=== PATIENT | female | born 1990 | race African-American/Black ===

== ENCOUNTER → 2017-01-07 | Outpatient (CLI) | payer BC ==
[2015-03-02 14:00] VITALS: BP 131/94
[~2017-01-07] MED LIST: DOCU-109 PO; Ibuprofen PO; OXYC-323 PO
--- NOTE | 2017-01-07 14:58 | RAD ---
Obstetrical ultrasound, 01/07/2017: History: Routine evaluation There is a single intrauterine fetus in a breech orientation. The biparietal diameter measures 4.1 cm compatible with a gestational age of 18-19 weeks. This corresponds well to the other measurements and yields a sonographic EDC of 06/05/2017. Normal activity and heart motion were seen. The heart rate was 150 bpm. No specific abnormality is detected. The placenta lies anteriorly with no evidence of a placenta previa. A normal amount of amniotic fluid is present. The cervical length is 5 cm. IMPRESSION: Single viable intrauterine fetus of 18-19 weeks gestational age as described above.
== END | disposition home or self-care (01) ==
LOC: US 12:49
PROVIDERS: ATTEND Obstetrics & Gynecology
DX: O26.842 Uterine size-date discrepancy, second trimester (principal); Z3A.18 18 weeks gestation of pregnancy
CPT/HCPCS: 76805

== ENCOUNTER 2017-04-22 11:03 | Observation (INO) | payer BC ==
[2015-03-02 14:00] VITALS: BP 131/94
[2017-04-22] MEDS ORDERED: IV RINGERS,LACTATED 1000ML 1,000 ML IV PRN (11:15)
--- NOTE | 2017-04-22 12:47 | RAD ---
Obstetrical ultrasound-Limited, 04/22/2017: History: Decreased movement There is a single intrauterine fetus in a breech orientation. movement and cardiac activity is present with a heart rate of 141 bpm. A full survey with measurements was not performed at this time. A normal amount of amniotic fluid is present with the CLAYTON calculated at 14. The placenta lies anteriorly and is considered to be grade 1. The cervix measures 5 to 6 cm in length.
[2017-04-22 13:13] LABS: BACTERIA,URINE FEW /HPF (0-FEW); BILIRUBIN,URINE NEGATIVE (NEG); GLUCOSE,URINE NEGATIVE (NEG); NITRITE,URINE NEGATIVE (NEG); PROTEIN,URINE 30 mg/dL (NEG-TRACE); RBC,URINE OCC /HPF (0-2); SQUAMOUS EPITHELIAL CELL,UR MANY /LPF; UROBILINOGEN,URINE 0.2 mg/dL (0.2 mg/dL)
[2017-06-07] MEDS ORDERED: DOCU-109 PO (12:31)
[2017-06-07] MEDS ORDERED: OXYC-323 PO (12:31)
[2017-06-07] MEDS ORDERED: IBUP-1060 PO (12:31)
== END 2017-04-22 14:55 | disposition home or self-care (01) ==
LOC: 3 SO LND 11:03
PROVIDERS: ADMIT Obstetrics & Gynecology; ATTEND Obstetrics & Gynecology
DX: O36.8130 Decreased fetal movements, third trimester, not applicable or unspecified (principal); O21.2 Late vomiting of pregnancy; O26.893 Other specified pregnancy related conditions, third trimester; R11.0 Nausea; Z3A.33 33 weeks gestation of pregnancy
CPT/HCPCS: 76815; 81001; G0378; G0379

== ENCOUNTER 2017-05-28 11:38 | Observation (INO) | payer BC | END 2017-05-28 13:40 | disposition home or self-care (01) | LOC: 3 SO LND 11:38 | DX: O26.893 Other specified pregnancy related conditions, third trimester (principal); R06.02 Shortness of breath; R60.9 Edema, unspecified; R20.2 Paresthesia of skin; Z3A.37 37 weeks gestation of pregnancy | CPT/HCPCS: G0378; G0379 ==

== ENCOUNTER 2017-06-04 07:14 | Inpatient (IN) | payer BC ==
[2017-06-04] MEDS ORDERED: FAMOTIDINE 20 MG/2 ML VIAL (07:21)
[2017-06-04] MEDS ORDERED: ONDANSETRON PF 4 MG/2 ML VIAL. (07:21)
[2017-06-04] MEDS ORDERED: MORPHINE PF 5 MG/10 ML VIAL. (07:34)
[2017-06-04] MEDS ORDERED: fentaNYL PF VIAL 100 MCG/2 ML VIAL (07:35)
[2017-06-04 07:51] LABS: HEMATOCRIT 41.3 % (36.0-47.0); MEAN CORPUSCULAR HEMOGLOBIN 32 pg (25-35); MEAN CORPUSCULAR HGB CONC 34 g/dL (31-37); MEAN CORPUSCULAR VOLUME 94 fL (79-100); PLATELET COUNT 194 x10^3/uL (140-400); RED CELL DISTRIBUTION WIDTH 13.8 % (11.5-14.5); WHITE BLOOD COUNT 9.1 x10^3/uL (4.0-11.0)
[2017-06-04] MEDS: IV RINGERS,LACTATED 1000ML 1,000 ML IV (08:01)
[2017-06-04] MEDS: CITRIC ACID/SODIUM CITRATE 30 ML SOLUTION. PO (08:02)
[2017-06-04 08:05] LABS: BILIRUBIN,URINE NEGATIVE (NEG); CLARITY,URINE CLEAR; COLOR,URINE YELLOW; GLUCOSE,URINE NEGATIVE (NEG); NITRITE,URINE NEGATIVE (NEG); PH,URINE 6.5; PROTEIN,URINE 30 mg/dL (NEG-TRACE); UROBILINOGEN,URINE 0.2 mg/dL (0.2 mg/dL)
[2017-06-04] MEDS ORDERED: PHENYLEPHRINE in 0.9% NACL PF 1 MG/10 ML SYRINGE. IV (08:27)
[2017-06-04] MEDS ORDERED: OXYTOCIN 10 UNIT/ML VIAL. ×3 (08:32→08:45)
[2017-06-04 08:34] LABS: BACTERIA,URINE FEW /HPF (0-FEW); SQUAMOUS EPITHELIAL CELL,UR MOD /LPF; WBC,URINE OCC /HPF (0-4)
[2017-06-04] MEDS ORDERED: diphenhydrAMINE ORAL ELIXIR 12.5 MG/5 ML ML PO (09:15)
[2017-06-04] MEDS ORDERED: MAG HYDROX/ALUMINUM HYD/SIMETH 30 ML ORAL.SUSP PO (09:15)
[2017-06-04] MEDS ORDERED: SIMETHICONE 80 MG TAB.CHEW PO (09:15)
[2017-06-04] MEDS ORDERED: 0.9 % SODIUM CHLORIDE 10 ML DISP.SYRIN. IV (09:15)
[2017-06-04] MEDS ORDERED: ONDANSETRON PF 4 MG/2 ML VIAL. IV (09:15)
[2017-06-04] MEDS ORDERED: KETOROLAC 30 MG/ML INJ. IV (09:15)
[2017-06-04] MEDS ORDERED: ZOLPIDEM 5 MG TABLET. PO (09:15)
[2017-06-04] MEDS ORDERED: OXYTOCIN 30 UNIT/500 ML PREMIX 500 ML IV (09:15)
[2017-06-04] MEDS: KETOROLAC 30 MG/ML INJ. IV (10:52)
[2017-06-04] MEDS ORDERED: DIPHTH,PERTUSS(ACELL),TET TOX 0.5 ML DISP.SYRIN. VAX IM (14:30)
[2017-06-04] MEDS ORDERED: FERROUS SULFATE 325 MG TABLET. PO (17:00)
[2017-06-04] MEDS ORDERED: ONDANSETRON ODT 4 MG TAB.RAPDIS. PO (17:45)
[2017-06-04] MEDS: oxyCODONE/APAP 5/325 1 TAB TABLET PO (18:56)
[2017-06-05] MEDS: IBUPROFEN 800 MG TABLET. PO ×2 (03:01→17:26)
[2017-06-05 05:58] LABS: ADD MAN DIFF? NO
[2017-06-05 06:00] LABS: BASO # 0.1 x10^3/uL (0.0-0.2); BASO % 1 % (0-3); EOS # 0.1 x10^3/uL (0.0-0.7); EOS % 1 % (0-3); HEMATOCRIT 37.2 % (36.0-47.0); HEMOGLOBIN 12.4 g/dL (12.0-15.5); LYMPH # 2.4 x10^3/uL (1.0-4.8); LYMPH % 25 % (24-48); MEAN CORPUSCULAR HEMOGLOBIN 32 pg (25-35); MEAN CORPUSCULAR HGB CONC 33 g/dL (31-37); MEAN CORPUSCULAR VOLUME 95 fL (79-100); MONO # 0.7 x10^3/uL (0.0-1.1); MONO % 7 % (0-9); NEUT # 6.4 x10^3uL (1.8-7.7); NEUT % 66 % (31-73); PLATELET COUNT 175 x10^3/uL (140-400); RED BLOOD COUNT 3.92 x10^6/uL (3.50-5.40); RED CELL DISTRIBUTION WIDTH 13.9 % (11.5-14.5); WHITE BLOOD COUNT 9.7 x10^3/uL (4.0-11.0)
[2017-06-05 06:16] LABS: RPR Non Reactive (Non Reactive)
[2017-06-05] MEDS: DOCUSATE SODIUM 100 MG CAPSULE. PO (08:52)
[2017-06-05] MEDS: oxyCODONE/APAP 5/325 1 TAB TABLET PO (08:53)
[2017-06-06] MEDS: oxyCODONE/APAP 5/325 1 TAB TABLET PO (03:14)
[2017-06-06] MEDS: DOCUSATE SODIUM 100 MG CAPSULE. PO ×2 (03:14→17:21)
[2017-06-06] MEDS: IBUPROFEN 800 MG TABLET. PO ×2 (08:41→17:21)
[2017-06-07] MEDS: oxyCODONE/APAP 5/325 1 TAB TABLET PO (05:42)
[2017-06-07] MEDS: DOCUSATE SODIUM 100 MG CAPSULE. PO (05:42)
[2017-06-07] MEDS: IBUPROFEN 800 MG TABLET. PO (08:18)
[2017-06-07] MEDS ORDERED: DIPHTH,PERTUSS(ACELL),TET TOX 0.5 ML DISP.SYRIN. VAX IM (13:00)
== END 2017-06-07 15:31 | disposition home or self-care (01) | DRG 766 ==
LOC: OPSVCIP 07:14 → 3 SO LND 07:33 → 3 NORTH 11:08
PROC: 10D00Z1 Extraction of Products of Conception, Low, Open Approach (ICD-10-PCS; principal; 2017-06-04)
DX: O34.211 Maternal care for low transverse scar from previous cesarean delivery (principal); Z37.0 Single live birth; Z3A.39 39 weeks gestation of pregnancy
CPT/HCPCS: 36415; 81001; 85025; 85027; 86593; 86850; 86900; 86901; J0690; J1885; J2270; J2370; J2405; J2590; J3010; J7120; S0028

== ENCOUNTER → 2018-10-28 | Outpatient (CLI) | payer BC ==
[2017-06-07 11:10] VITALS: BP 118/82
[~2018-10-28] MED LIST changes: +IBUP-1060 PO; -OXYC-323 PO; +OXYC1TAB15 PO
--- NOTE | 2018-10-28 16:18 | RAD ---
EXAM: Pelvic sonogram. HISTORY: Abnormal uterine bleeding. Cervical dysplasia. TECHNIQUE: Sonographic imaging of the pelvis was performed. COMPARISON: None. FINDINGS: The uterus is retroflexed and measures 10.4 x 5.7 x 4.9 cm. The endometrial stripe measures 12 abdomen thickness. The ovaries are normal in size and demonstrate normal blood flow. There is no pelvic free fluid. IMPRESSION: 1. Retroflexed uterus. 2. Prominent endometrial stripe. This is within normal limits for a premenopausal female. Electronically signed by: Laurence Roa MD (10/28/2018 4:15 PM) [id number]
== END | disposition home or self-care (01) ==
LOC: US 15:00
PROVIDERS: ATTEND Obstetrics & Gynecology
DX: R93.89 Abnormal findings on diagnostic imaging of other specified body structures (principal); N93.9 Abnormal uterine and vaginal bleeding, unspecified; N87.9 Dysplasia of cervix uteri, unspecified
CPT/HCPCS: 76856